=== PATIENT | female | born 1985 | race Caucasian/White ===

== ENCOUNTER 2017-06-23 08:37 | Outpatient (RCR) | payer BC, SELFPAY ==
--- NOTE | 2017-06-21 15:55 | BH.COMM ---
Communication Note - Communication with Client Communication Note: This therapist contacted client as she was scheduled for IOP program on this day however did not show. CLient reports struggling with negative thinking all day and woke up feeling depressed and exhausted which caused her to isolate and remain in been a majority of the day. Client disclosed increased thoughts of self harming; however denied any plan or intent to act on these thoughts. Client indicates she is able to maintain safety and is aware of the resources available should she no longer ffel able to do so. Future oriented as evidenced by plans to make dinner tonight and attend appointment tomorrow. Client expresses understanding that attendance is kelsey to making progress in better managing mental health symptoms. CLient receptive to having this therapist call her emergency contact should she no call/no show for next scheduled appointment, 06/23/17, in order increase motivation to attend and better hold her accountable. FOllow-up will be done in individual session on 06/23/17.
--- NOTE | 2017-06-23 13:51 | BH.SGPN ---
Service Group Progress Note - Session Psychotherapy Session #1 Date Open:: 06/23/17 Time Started:: 09:04 Time Stopped:: 09:54 Targeted Problem #:: 1 Type of Group:: Process - 6 Participants Goal of Group:: The goal of today's group was to check-in with client's mood, stressors, and positives, review homework, and to introduce the topic of the day. Client Response/Progress/Benefit:: Client entered session alert and attentive. Client shared, Tuesday was awful. I didnt get out of bed because I didnt want to see or talk to anyone and ruminated all day. Client went on to share that this was due to an argument with her the night before and felt bad about it. Client reported having decreased motivation and stated, I told myself I could have a [employer] coffee to get me here today. Therapist discussed ways at providing motivation for ourselves and client was receptive. Client benefitted from group by identifying her negative coping and ways she could have implemented positive coping skills. Progress noted in clients ability to make it to group today using a positive motivation and reward. Continued treatment necessary to increase implementation of coping skills. Eye Contact:: Good Motor Activity:: Appropriate Appearance:: Casual Speech:: Appropriate Mood:: Depressed Affect:: Full Thoughts:: Linear, Logical, No evidence of hallucinations/delusions noted Staff Interventions:: Therapist used open-ended questions to elicit information about client's current stressors and mood. Therapist was supportive by using active listening and reflection. Psychotherapy Session #2 Date Open:: 06/23/17 Time Started:: 10:09 Time Stopped:: 11:06 Targeted Problem #:: 1 Type of Group:: Illness Management - 5 Participants Goal of Group:: To increase understanding of fear and explore the negative impact fear of failure can have on mental health and decision making. Client Response/Progress/Benefit:: Client entered session alert and attentive. Client defined what failure means to her as, not getting out of bed and doing what Im supposed to do. Client collaborated with peers to complete a group activity designed to test how individuals manage failure in their own lives. Client was unsure if she would be able to complete activity due to memory issues, but client was able to successfully complete activity. Client benefitted from group by processing what failure means and how it can be reframed positively. Progress noted in clients ability to continue on with activity even through negative self-talk. Continued treatment necessary to increase functioning. Eye Contact:: Good Motor Activity:: Appropriate Appearance:: Casual Speech:: Appropriate Mood:: Euthymic Affect:: Full Thoughts:: Linear, Logical, No evidence of hallucinations/delusions noted Staff Interventions:: Therapist facilitated discussion about fear and impact fear of failure can have. Therapist led group in an experiential activity in which clients would fail numerous times throughout, but were given the opportunity to try again. Therapist led the processing of the activity and assisted clients with connecting how fear of failure impacted their decision making during the activity.
--- NOTE | 2017-06-23 14:18 | BH.SGPN ---
Service Group Progress Note - Session Psychotherapy Session #2 Date Open:: 06/23/17 Time Started:: 10:09 Time Stopped:: 11:06 Targeted Problem #:: 1 Type of Group:: Illness Management - 5 participants Psychotherapy Session #3 Date Open:: 06/23/17 Time Started:: 11:15 Time Stopped:: 12:10 Targeted Problem #:: 1 Type of Group:: Functional Skills Development - 6 participants
--- NOTE | 2017-06-23 14:47 | BH.MDN ---
Multi-Disciplinary Note - Note 45-min Individual Time Started:: 12:20 Date: 06/23/17 Purpose of session/treatment goals addressed:: The purpose of this session was to check-in with CLient current symptomatology, stressors, and current means of coping. Another purpose was to review with CLient the impact of self depricating talk on mental health as well as ways to begin challenging use of negative self talk. Aided Client in identifying strategies Client can utilize to best promote a healthy daily routine. Eye Contact:: Good Motor Activity:: Appropriate Appearance:: Casual Speech:: Appropriate Mood:: Euthymic Affect:: Congruent Thoughts:: Linear, Logical, No evidence of hallucinations/delusions noted Staff Interventions:: Therapist asked open ended questions to ellicit information regarding Client current symptoms, stressors, and implementation of treatment material and coping skills learned. Provided psychoeducation regarding relationship between self talk and mental health. Utilized Motivational Interviewing concepts of creating discrepency and processing ambivilance to promote change behaviors. Aided Client in setting small goal for this weekend. Client Response:: Client responded well to session and engaged throughout. She reports her overall mental health state has improved since this past Tuesday which Client described as being really bad. Client elaborated on symptoms experienced during that time indicating that she couldn't get out of bed, had no motivation, felt hopeless, and was experiencing increased negative thinking. Client had difficulties in pinpointing any triggers and was unable to identify what has changed to improve her mood since. Client not knowing what else to do as she expressed she is doing everything I can. Client responded well to being challenged as to what skills she has implemented or behaviors she has changed to best suppport her mental health since beginning the IOP program. Client identified attending the program as the only change she has made and indicated that on days she attends group or has something to do she feels better. Client denied taking any steps towards challenging her thoughts or use of self depricating talk and indicated having some ambivilance in doing so as she is skeptical of it's effectiveness. However, in discussing the relationship between self talk and mental health Client appeared more accepting of the idea of beginning to challenge her thinking. Client reports feeling uncomfortable or like a fraud when using these skills. She responded well to discussing how new things can be uncomfortable or feel wrong during the adjustment period. Client agreeable to slowly implementing thought challenging strategies into her routine so that she can more readily adapt to making minor adjustments in her thinking patterns. Client worked with this therapist to develop small goals for this weekend and created a get out of bed checklist as motivation. Client reports plans to begin taking time each morning to work on challenging self sabbotaging thoughts. Risks/Concerns:: No risks or concerns at this time. Client denies any active SI/HI, plan, or intent. She is future oriented and indicates plans to attend a [employer] night with her mother this evening. Client indicates an ability to maintain safety and is aware of and willing to utilize local crisis resources available if feeling unable to maintain safety at any time. Progress Toward Goals/Plan:: Some progress. Client reports improved levels of depression and anxiety on this date however continues to experience fluctuating moods. Since being prescribed [facility] last tuesday, 06/17, Client reports improved levels of sleep and in turn increased energy. Client appears more willing to begin implementing internal coping skills; however, continues to struggle with consistant implementation. Client appears to have fair levels of insight but often uses poor judgement which results in maladaptive coping such as isolating and self depricating talk. Current plan is to continue treatment in order to prevent decompensation and continue working with Client on challenging her unhealthy thinking patterns and increase consistant use of coping skills. Time Stopped:: 13:00
--- NOTE | 2017-06-23 14:58 | BH.SGPN ---
Service Group Progress Note - Session Psychotherapy Session #1 Date Open:: 06/23/17 Time Started:: 09:04 Time Stopped:: 09:54 Targeted Problem #:: 1 Type of Group:: Process Goal of Group:: The goal of today's group was to check-in with client's mood, stressors, and positives, review homework and introduce topic for the day. Staff Interventions:: Therapist used open-ended questions to elicit information about client's current stressors and mood state. Therapist was supportive by using active listening and reflection.
--- NOTE | 2017-06-24 15:00 | BH.COMM ---
Communication Note - Communication with Client Communication Note: Spoke with [facility] psychiatrist providing client's recent Tina level information. [facility] psychiatrist gave order for patient to increase from 300mg once a day at night to taking 300mg Tina in the morning and 300mg Tina at night. Requests a Tina level to be drawn the week of 07/04/17.
--- NOTE | 2017-06-24 15:02 | BH.COMM_ITS ---
Communication Note - Communication with Client Communication Note: Spoke with [facility] psychiatrist providing client's recent Manly level information. [facility] psychiatrist gave order for patient to increase from 300mg once a day at night to taking 300mg Manly in the morning and 300mg Manly at night. Requests a Manly level to be drawn the week of 07/04/17.
--- NOTE | 2017-06-28 15:12 | BH.SGPN ---
Service Group Progress Note - Session Psychotherapy Session #3 Date Open:: 06/28/17 - 5 group members Time Started:: 11:07 Time Stopped:: 12:01 Targeted Problem #:: 1 Type of Group:: Functional Skills Development Goal of Group:: To identify steps to solving a personal problem and increase awareness to those barriers that impedes the problem solving process. Client Response/Progress/Benefit:: Client responded well to session, passive participant at times. Client identified managing depression and anxiety as a personal problem she would like to solve. Client reported it was easy to come up with her barriers, but challenging to think of steps to solve the problem. Client identified her barriers to be: negative thinking, suicidal thoughts, flashbacks, and panic attacks. With therapist elicitation, client created small steps to solve this problem such as continue coming to IOP even when I don't feel like it, continue with medication and DBT, use positive self-talk and challenge negative thinking. Client stated using healthy coping skills such as art, music, and being with pets will keep client motivated throughout this process. Client appeared to benefit from gaining awareness of barriers and identifying strategies to overcome her problem. Client progressing with creating small steps to manage symptoms, but continues to struggle with consistency. Eye Contact:: Fair Motor Activity:: Appropriate Appearance:: Neat Speech:: Soft Mood:: Dysthymic Affect:: Constricted Thoughts:: Linear, No evidence of hallucinations/delusions noted Staff Interventions:: Therapist provided group members with a worksheet in which the group members were instructed to identify a problem and steps need to take to solve that problem. Then therapist instructed group members to identify those barriers that get in the way of solving the problem. Therapist led the processing of the activity. Therapist provided support by using active listening and providing feedback.
--- NOTE | 2017-06-30 15:20 | BH.SGPN ---
Service Group Progress Note - Session Psychotherapy Session #2 Date Open:: 06/30/17 - 3 group members Time Started:: 10:13 Time Stopped:: 11:06 Targeted Problem #:: 1 Type of Group:: Illness Management Goal of Group:: The goal of todays group is to identify how emotions can impact our communication skills, and why it is important to be able to communicate in stressful situations. Client Response/Progress/Benefit:: Client responded well to session, active participant. Client processed quote with group, nodding in agreement to peers response. Client reported when her emotions are not managed she tends to shut down, isolate, and withdraw from supports which can negatively impact communication. Client reported even though it is hard, it is important to communicate in stressful situations so that ones support system knows what client needs and how to effectively help her. Client appeared to benefit from identifying ways that emotions can impact communication. Client progressing with gaining awareness as shown by her report of high emotions leading client to withdraw from supports which can hinder communication and exacerbate mental health symptoms. Eye Contact:: Fair Motor Activity:: Appropriate Appearance:: Neat Speech:: Soft Mood:: Dysthymic Affect:: Flat Thoughts:: Linear, No evidence of hallucinations/delusions noted Staff Interventions:: Therapist led an experiential activity where group members worked together for a common goal, but with adaptations made on how members were able to communicate with one another. Therapist used open-ended questions to elicit group discussion about emotions which arose during activity, as well as identifying how emotions experienced impacted ability to communicate effectively with other group members. Psychotherapy Session #3 Date Open:: 06/30/17 - 3 group members Time Started:: 11:14 Time Stopped:: 12:05 Targeted Problem #:: 1 Type of Group:: Functional Skills Development Goal of Group:: The goal of todays group was to increase awareness of different states of alertness attached to emotions and identifying healthy coping strategies for each state of alertness. Client Response/Progress/Benefit:: Client responded well to session, participating when prompted by therapist. Client learned about the stages of emotional alertness and described what each stage looks like for her. Client shared when she feels low client feels empty, sad, meaningless, and lacks motivation. Client identified her survival alertness as extreme depression and anxiety, racing negative thoughts, and hopelessness. Client stated her baseline is when client is able to manage her symptoms and work. Client identified healthy coping skills that would return client to her baseline such as self-care, coming to group even when I dont want to, and using art. Client appeared to benefit from gaining awareness of what her emotional alertness stages look like as well as identifying healthy coping skills to utilize in each stage. Client progressing as evidenced by her attendance at group today despite reports of increased depressive symptoms. Eye Contact:: Fair Motor Activity:: Slowed Appearance:: Neat Speech:: Soft Mood:: Dysthymic Thoughts:: Linear, No evidence of hallucinations/delusions noted Staff Interventions:: Therapist facilitated group by teaching about the 4 zones of different states of alertness and helping clients connect emotions to each zone based on state of alertness. Therapist assisted clients with identifying healthy coping strategies that would be best utilized based on the state of alertness. Therapist provided support by using active listening and providing feedback.
--- NOTE | 2017-06-30 15:40 | BH.SGPN_ITS ---
Service Group Progress Note - Session Psychotherapy Session #2 Date Open:: 06/30/17 - 3 group members Time Started:: 10:13 Time Stopped:: 11:06 Targeted Problem #:: 1 Type of Group:: Illness Management Goal of Group:: The goal of today?s group is to identify how emotions can impact our communication skills, and why it is important to be able to communicate in stressful situations. Client Response/Progress/Benefit:: Client responded well to session, active participant. Client processed quote with group, nodding in agreement to peer?s response. Client reported when her emotions are not managed she tends to shut down, isolate, and withdraw from supports which can negatively impact communication. Client reported even though it is hard, it is important to communicate in stressful situations so that one?s support system knows what client needs and how to effectively help her. Client appeared to benefit from identifying ways that emotions can impact communication. Client progressing with gaining awareness as shown by her report of high emotions leading client to withdraw from supports which can hinder communication and exacerbate mental health symptoms. Eye Contact:: Fair Motor Activity:: Appropriate Appearance:: Neat Speech:: Soft Mood:: Dysthymic Affect:: Flat Thoughts:: Linear, No evidence of hallucinations/delusions noted Staff Interventions:: Therapist led an experiential activity where group members worked together for a common goal, but with adaptations made on how members were able to communicate with one another. Therapist used open-ended questions to elicit group discussion about emotions which arose during activity , as well as identifying how emotions experienced impacted ability to communicate effectively with other group members. Psychotherapy Session #3 Date Open:: 06/30/17 - 3 group members Time Started:: 11:14 Time Stopped:: 12:05 Targeted Problem #:: 1 Type of Group:: Functional Skills Development Goal of Group:: The goal of today group was to increase awareness of different states of alertness attached to emotions and identifying healthy coping strategies for each state of alertness. Client Response/Progress/Benefit:: Client responded well to session, participating when prompted by therapist. Client learned about the stages of emotional alertness and described what each stage looks like for her. Client shared when she feels low client feels empty, sad, ?meaningless,? and lacks motivation. Client identified her survival alertness as ?extreme depression and anxiety,? racing negative thoughts, and hopelessness. Client stated her baseline is when client is able to manage her symptoms and work. Client identified healthy coping skills that would return client to her baseline such as self-care, coming to group ?even when I don?t want to,? and using art. Client appeared to benefit from gaining awareness of what her emotional alertness stages look like as well as identifying healthy coping skills to utilize in each stage. Client progressing as evidenced by her attendance at group today despite reports of increased depressive symptoms. Eye Contact:: Fair Motor Activity:: Slowed Appearance:: Neat Speech:: Soft Mood:: Dysthymic Thoughts:: Linear, No evidence of hallucinations/delusions noted Staff Interventions:: Therapist facilitated group by teaching about the 4 zones of different states of alertness and helping clients connect emotions to each zone based on state of alertness. Therapist assisted clients with identifying healthy coping strategies that would be best utilized based on the state of alertness. Therapist provided support by using active listening and providing feedback.
--- NOTE | 2017-07-01 11:12 | BH.SGPN ---
Service Group Progress Note - Session Psychotherapy Session #1 Date Open:: 07/01/17 Time Started:: 09:00 Time Stopped:: 09:50 Targeted Problem #:: 1 Type of Group:: Process - 6 Participants Goal of Group:: The goal of today's group was to check-in with client's mood, stressors, and positives, review homework, and to introduce the topic of the day. Client Response/Progress/Benefit:: Client entered session attentive but was quiet the majority of group AEB staring at the floor and bouncing her legs. Client refused to share with group. Client appeared to benefit from being in a social environment with others but no progress was noted due to clients refusal to share. Continued treatment necessary to increase communication and reduce depressive symptoms. Eye Contact:: Fair Motor Activity:: Restless - bouncing legs and moving around in chair Appearance:: Casual Speech:: Appropriate Mood:: Anxious, Depressed Affect:: Constricted, Congruent Thoughts:: Linear, Logical, No evidence of hallucinations/delusions noted Staff Interventions:: Therapist used open-ended questions to elicit information about client's current stressors and mood. Therapist was supportive by using active listening and reflection.
--- NOTE | 2017-07-01 15:00 | BH.SGPN ---
Service Group Progress Note - Session Psychotherapy Session #3 Date Open:: 07/01/17 Time Started:: 11:10 Time Stopped:: 12:00 Targeted Problem #:: 1 Type of Group:: Functional Skills Development Goal of Group:: To increase awareness of warning signs before a crisis and identify interventions/coping strategies that would help clients proactively manage potential crises. Eye Contact:: Fair Motor Activity:: Appropriate Appearance:: Casual Speech:: Appropriate Mood:: Depressed Affect:: Constricted Thoughts:: Linear, Logical, No evidence of hallucinations/delusions noted Staff Interventions:: Therapist led the group in discussion about identifying personal warning signs before a crisis and importance of being aware of those signs.Therapist provided the group with various types of items and asked each group member to select five items that represent something that would be helpful in managing their warning signs of a crisis. Therapist facilitated group processing of the crisis emergency kits each group member created. Therapist used open-ended questions to encourage elaboration of each item chosen for their kit. Therapist helped clients connect how the crisis emergency kit could help be a crisis prevention tool.
--- NOTE | 2017-07-05 13:54 | BH.SGPN_ITS ---
Service Group Progress Note - Session Psychotherapy Session #1 Date Open:: 06/23/17 Time Started:: 09:04 Time Stopped:: 09:54 Targeted Problem #:: 1 Type of Group:: Process - 6 Participants Goal of Group:: The goal of today's group was to check-in with client's mood, stressors, and positives, review homework, and to introduce the topic of the day. Client Response/Progress/Benefit:: Client entered session alert and attentive. Client shared, ?Tuesday was awful. I didn?t get out of bed because I didn?t want to see or talk to anyone and ruminated all day.? Client went on to share that this was due to an argument with her the night before and felt bad about it. Client reported having decreased motivation and stated, ?I told myself I could have a [employer] coffee to get me here today.? Therapist discussed ways at providing motivation for ourselves and client was receptive. Client benefitted from group by identifying her negative coping and ways she could have implemented positive coping skills. Progress noted in client?s ability to make it to group today using a positive motivation and reward. Continued treatment necessary to increase implementation of coping skills. Eye Contact:: Good Motor Activity:: Appropriate Appearance:: Casual Speech:: Appropriate Mood:: Depressed Affect:: Full Thoughts:: Linear, Logical, No evidence of hallucinations/delusions noted Staff Interventions:: Therapist used open-ended questions to elicit information about client's current stressors and mood. Therapist was supportive by using active listening and reflection. Psychotherapy Session #2 Date Open:: 06/23/17 Time Started:: 10:09 Time Stopped:: 11:06 Targeted Problem #:: 1 Type of Group:: Illness Management - 5 Participants Goal of Group:: To increase understanding of fear and explore the negative impact fear of failure can have on mental health and decision making. Client Response/Progress/Benefit:: Client entered session alert and attentive. Client defined what failure means to her as, ?not getting out of bed and doing what I?m supposed to do.? Client collaborated with peers to complete a group activity designed to test how individuals manage failure in their own lives. Client was unsure if she would be able to complete activity due to memory issues , but client was able to successfully complete activity. Client benefitted from group by processing what failure means and how it can be reframed positively. Progress noted in client?s ability to continue on with activity even through negative self-talk. Continued treatment necessary to increase functioning. Eye Contact:: Good Motor Activity:: Appropriate Appearance:: Casual Speech:: Appropriate Mood:: Euthymic Affect:: Full Thoughts:: Linear, Logical, No evidence of hallucinations/delusions noted Staff Interventions:: Therapist facilitated discussion about fear and impact fear of failure can have. Therapist led group in an experiential activity in which client?s would fail numerous times throughout, but were given the opportunity to try again. Therapist led the processing of the activity and assisted clients with connecting how fear of failure impacted their decision making during the activity.
--- NOTE | 2017-07-06 14:23 | BH.SGPN_ITS ---
Service Group Progress Note - Session Psychotherapy Session #2 Date Open:: 07/06/17 group members Time Started:: 10:20 Time Stopped:: 11:15 Targeted Problem #:: 1 Type of Group:: Illness Management Goal of Group:: To increase understanding of resilience and identify the factors that contribute to building resilience. Client Response/Progress/Benefit:: Client responded well to session, active participant. Client processed the quote nodding in agreement to peers? comments. Client helped the group identify factors of resiliency such as supportive connections and moving towards goals. Client shared goals give one a reason to move forward and builds confidence. Client stated it is also important to ask for and accept help from personal and professional supports. Client reported belief she is resilient and appeared to agree with peers that resiliency is something that is learned and developed over time as one overcomes hardships. Client appeared to benefit from increasing her awareness of the resiliency factors. Client progressing as shown by her report of increased goal setting and use of supports, but can continue to benefit from challenging negative thoughts. Eye Contact:: Fair Motor Activity:: Appropriate Appearance:: Neat Speech:: Appropriate Mood:: Euthymic Affect:: Constricted Thoughts:: Linear, No evidence of hallucinations/delusions noted Staff Interventions:: Therapist led group in an activity that would induce a chaotic environment and used the activity as a tool in discussing the various stressors people are faced with each day. Therapist facilitated group discussion about resilience and explained the factors of building resilience. Therapist led discussion about factors that contribute to resilience. Therapist provided support by using active listening and providing feedback. Psychotherapy Session #3 Date Open:: 07/06/17 group members Time Started:: 11:21 Time Stopped:: 12:11 Targeted Problem #:: 1 Type of Group:: Functional Skills Development Goal of Group:: To rehearse resilient factors and identify ways to maintain resilience despite hardships and stressors. Client Response/Progress/Benefit:: Client responded well to session, active participant. Client reported being flexible and trying new strategies increases resiliency. Client identified her personal resiliency factors as ?I?m still here ? despite all the hardships client has been through. Client was receptive to supportive statements given by therapist and peers on additional resiliency traits client possesses. Client acknowledged that she has been utilizing opposite action as a strategy to combat depression which demonstrates progress and resiliency. Client wrote her personal resiliency traits on her stress ball to remind client of how she can remain resilient despite hardships. Client appeared to benefit from identifying ways in which client has demonstrated resiliency as well as gaining emotional support from peers. Client progressing as evidenced by her report of more consistent behavioral changes such as coming to group when client feels depressed. Eye Contact:: Good Motor Activity:: Appropriate Appearance:: Neat Speech:: Appropriate Mood:: Euthymic Affect:: Congruent Thoughts:: Linear, No evidence of hallucinations/delusions noted Staff Interventions:: Therapist led group in an activity in which group members were challenged to stay resilient despite various stressors and hardships added to activity. Therapist provided each group member with a stress ball and used stress ball as a tool to discuss factors of resilient personality. Therapist provided group members with a handout about the building blocks of resilience. Therapist provided support by using reflective listening.
--- NOTE | 2017-07-06 16:23 | BH.SGPN ---
Service Group Progress Note - Session Psychotherapy Session #1 Date Open:: 07/06/17 Time Started:: 09:09 Time Stopped:: 10:15 Targeted Problem #:: 1 Type of Group:: Process - 10 participants
--- NOTE | 2017-07-07 11:48 | BH.MDN ---
Multi-Disciplinary Note - Note 45-min Individual Time Started:: 09:10 Date: 07/07/17 Purpose of session/treatment goals addressed:: Purpose of the session was to check in with client current symptoms, stressors, supports. Another purpose was to discuss with client recent self sabotaging behavior and challenge negative thoughts associated with such, as well as identify steps to increase supports and encourage healthy behaviors. Eye Contact:: Good Motor Activity:: Appropriate Appearance:: Casual Speech:: Appropriate Mood:: Dysthymic Affect:: Congruent Thoughts:: Linear, Logical, No evidence of hallucinations/delusions noted Staff Interventions:: Therapist used open-ended questions to gather information on client's current symptoms, stressors, and supports. Therapist provided emotional support and active listening as client discussed guilt and frustration related to recent self-sabotaging behaviors as well as worked with Client to process impact this had on her mental health. Used Strengths based approach as well as ID techniques to encourage Client, identify progress made, and elicit change behaviors. Client Response:: Client open to meeting with this therapist for individual session and did well to remain engaged throughout. Client expressed minor improvement in overall levels of depression and described an increased ability to get out of bed on a consistent basis and complete ADLs. Client attributed this to making a conscious effort not to allow herself to isolate in her bedroom and actively completing the morning routine she created in a previous session. Client went on to discuss increased tension within her home life, specifically between Client's fiance and stepson, as client's mikhailon has been engaging in disruptive and defiant behavior. Client indicated that she had felt proud of herself for setting aside time to have a [id number] discussion with her stepson reviewing the progress he has made in the past 6 months, discussing strategies to best support and encourage positive behaviors, as well as identifying warning signs for when he feels like exploding. She responded well to therapist challenge that client apply the same technique she gave her stepson to her own life and journey in navigating mental health symptoms. Client indicated feeling it is easier to find progress when looking at someone else other than herself. She benefited from working with therapist to identify progress she has made since her initial admission occurring this past September compared to where she is now. Client able to identify increased ability to recognize warning signs and triggers, willingness to communicate with supports, and decreased isolation. Following review of progress made client guiltfully disclosed I kind of did something yesterday that was self sabotaging and went on to describe checking her ex-'s Facebook page only to discover that he is now engaged. Client indicated I don't know why did it and was able to identify negative effects as had on her mental health and self-esteem as a result. Client explained thinking why was I not good enough for him and if he left then Sandip will probably leave me too. She did well to work with this therapist on challenging these thoughts by reviewing evidence against these thoughts. Client responded well to suggestion of having accountability person to report self sabotaging behavior to as this may aid in deterring client from engaging in such. Client noted she would be less likely to engage in similar behaviors if she knew she had to report back to her mother every time she did so. Client expressed willingness to share this plan with her mother in order to ensure she will be held accountable as well as continue to complete daily routine in order to promote ongoing positive progress. Risks/Concerns:: No risks or concerns at this time. Client indicates passive thoughts of I wish I did not wake up this morning though denies any active suicidal or self harming ideation, plan, or intent as of 07/07/2017. Client indicates an ability to maintain safety and is future oriented as evidenced by expressed plans to go to her mother's house. Client reports her family as being her motivations to live. She is aware of and willing to use crisis resources available should she no longer feel able to maintain safety of herself or others. Progress Toward Goals/Plan:: Client is making progress in overall treatment goals. She has shown improvement in levels of insight insight into how current thoughts and behaviors impact overall mental health. Client discussed case motivation to apply skills learned in the IOP program to her daily life and has shown progress in her ability to prevent from isolating as well as challenge negative thoughts. Client continues to report ongoing anxiety and depressive symptoms. She often falls into [id number] thinking or self sabotaging behaviors. Client would benefit from continuing in IOP in order to maintain stability, further improve consistent use of healthy coping mechanisms, as well as increased overall understanding and management of of mental health symptoms. Time Stopped:: 10:58
--- NOTE | 2017-07-07 15:00 | BH.SGPN ---
Service Group Progress Note - Session Psychotherapy Session #2 Date Open:: 07/07/17 Time Started:: 10:15 Time Stopped:: 11:10 Targeted Problem #:: 1 Type of Group:: Illness Management Goal of Group:: The goal of group was to increase understanding of goals and goal setting and practice a method of goal setting. Eye Contact:: Good Motor Activity:: Appropriate Appearance:: Casual Speech:: Appropriate Mood:: Dysthymic Affect:: Congruent Thoughts:: Linear, Logical, No evidence of hallucinations/delusions noted Staff Interventions:: Therapist led group in an activity that would induce a chaotic environment and used the activity as a tool in discussing the various stressors people are faced with each day. Therapist facilitated group discussion about resilience and explained the factors of building resilience. Therapist led discussion about factors that contribute to resilience. Therapist provided support by using active listening and providing feedback. Psychotherapy Session #3 Date Open:: 07/07/17 Time Started:: 11:20 Time Stopped:: 12:15 Targeted Problem #:: 1 Type of Group:: Functional Skills Development Goal of Group:: The goal of group was to identify a goal for the weekend, explore the potential barriers to achieving that set goal, and identify strategies to overcome barriers. Eye Contact:: Good Motor Activity:: Appropriate Appearance:: Casual Speech:: Appropriate Mood:: Dysthymic Affect:: Congruent Thoughts:: Linear, Logical, No evidence of hallucinations/delusions noted Staff Interventions:: Therapist facilitated group activity in which group members identified a goal to work on over the next week. Therapist asked group members to identify barriers to achieving identified goal and strategies to help them achieve their goal. Therapist led group in processing their goal maps, assisting clients with establishing SMART goals. Therapist provided support by using reflective listening.
--- NOTE | 2017-07-08 11:12 | BH.SGPN_ITS ---
Service Group Progress Note - Session Psychotherapy Session #2 Date Open:: 06/28/17 Time Started:: 10:08 Time Stopped:: 11:00 Targeted Problem #:: 1 Type of Group:: Illness Management - 5 Participants Goal of Group:: To increase understanding of components of a problem, learn strategies to solve a problem and rehearse problem solving skills. Client Response/Progress/Benefit:: Client entered session alert and attentive. Client was quiet the majority of group, however she did participate in group activity designed to have group members use problem solving skills when faced with stressors. Client worked well with peers to create alternate ways to complete activity. Client benefitted from group by identifying various problem solving strategies and implementing them in group practice. Progress noted in client?s ability to work with peers and complete activity. Continued treatment necessary to decrease depressive symptoms. Eye Contact:: Good Motor Activity:: Appropriate Appearance:: Casual Speech:: Appropriate Mood:: Euthymic Affect:: Full Thoughts:: Linear, Logical, No evidence of hallucinations/delusions noted Staff Interventions:: Therapist facilitated group discussion about problems and the underlying components of problems. Therapist educated group about various strategies to solving a problem and provided an example of each. Therapist led group in an experiential activity that required group members to use problem solving skills to work together, rehearsing problem solving skills.
--- NOTE | 2017-07-08 11:13 | BH.SGPN_ITS ---
Service Group Progress Note - Session Psychotherapy Session #1 Date Open:: 07/01/17 Time Started:: 09:00 Time Stopped:: 09:50 Targeted Problem #:: 1 Type of Group:: Process - 6 Participants Goal of Group:: The goal of today's group was to check-in with client's mood, stressors, and positives, review homework, and to introduce the topic of the day. Client Response/Progress/Benefit:: Client entered session attentive but was quiet the majority of group AEB staring at the floor and bouncing her legs. Client refused to share with group. Client appeared to benefit from being in a social environment with others but no progress was noted due to client?s refusal to share. Continued treatment necessary to increase communication and reduce depressive symptoms. Eye Contact:: Fair Motor Activity:: Restless - bouncing legs and moving around in chair Appearance:: Casual Speech:: Appropriate Mood:: Anxious, Depressed Affect:: Constricted, Congruent Thoughts:: Linear, Logical, No evidence of hallucinations/delusions noted Staff Interventions:: Therapist used open-ended questions to elicit information about client's current stressors and mood. Therapist was supportive by using active listening and reflection.
--- NOTE | 2017-07-08 11:19 | BH.SGPN ---
Service Group Progress Note - Session Psychotherapy Session #1 Date Open:: 07/08/17 Time Started:: 09:02 Time Stopped:: 10:05 Targeted Problem #:: 1 Type of Group:: Process - 6 Participants Goal of Group:: The goal of today's group was to check-in with client's mood, stressors, and positives, review homework, and to introduce the topic of the day. Client Response/Progress/Benefit:: Client entered group alert, attentive, and willing to engage. Client cites having an okay day yesterday sharing that she was able to have a heart to heart with my mom and I had a little meltdown but Im okay. Client went on to share, I know he loves me but he doesnt understand sometimes so its nice that my mom is there. Client indicated her emotion as tired stating, I slept well but it was just really hard to get out of bed. Client benefitted from group by identifying her support systems in her life and receiving support from peers. Progress noted in clients ability to reach out to supports during a stressful situation. Continued treatment necessary to maintain use of supports and coping skills. Eye Contact:: Good Motor Activity:: Appropriate Appearance:: Casual Speech:: Appropriate Mood:: Anxious, Depressed Affect:: Full Thoughts:: Linear, Logical, No evidence of hallucinations/delusions noted Staff Interventions:: Therapist used open-ended questions to elicit information about client's current stressors and mood. Therapist was supportive by using active listening and reflection.
--- NOTE | 2017-07-08 11:24 | BH.SGPN_ITS ---
Service Group Progress Note - Session Psychotherapy Session #1 Date Open:: 07/08/17 Time Started:: 09:02 Time Stopped:: 10:05 Targeted Problem #:: 1 Type of Group:: Process - 6 Participants Goal of Group:: The goal of today's group was to check-in with client's mood, stressors, and positives, review homework, and to introduce the topic of the day. Client Response/Progress/Benefit:: Client entered group alert, attentive, and willing to engage. Client cites having an ?okay day yesterday? sharing that she was able to have a ?heart to heart with my mom and I had a little meltdown but I ?m okay.? Client went on to share, ?I know he loves me but he doesn?t understand sometimes so it?s nice that my mom is there.? Client indicated her emotion as tired stating, ?I slept well but it was just really hard to get out of bed.? Client benefitted from group by identifying her support systems in her life and receiving support from peers. Progress noted in client?s ability to reach out to supports during a stressful situation. Continued treatment necessary to maintain use of supports and coping skills. Eye Contact:: Good Motor Activity:: Appropriate Appearance:: Casual Speech:: Appropriate Mood:: Anxious, Depressed Affect:: Full Thoughts:: Linear, Logical, No evidence of hallucinations/delusions noted Staff Interventions:: Therapist used open-ended questions to elicit information about client's current stressors and mood. Therapist was supportive by using active listening and reflection.
--- NOTE | 2017-07-08 14:39 | BH.SGPN ---
Service Group Progress Note - Session Psychotherapy Session #2 Date Open:: 07/08/17 Time Started:: 10:17 Time Stopped:: 11:14 Targeted Problem #:: 1 Type of Group:: Illness Management - 7 participants Goal of Group:: To increase understanding of cognitive distortions, identify examples of when have had unhelpful thinking, and increase awareness of the impact cognitive distortions have on mental health. Staff Interventions:: Therapist utilized a quote as a tool to introduce topic of the day. Therapist provided group members with a handout that listed ten cognitive distortions with examples. Therapist facilitated group discussion about cognitive distortions. Therapist led group members in an activity to help them understand the impact cognitive distortions can have on emotions and behavior. Therapist provided support by using active listening and providing feedback. Psychotherapy Session #3 Date Open:: 07/08/17 Time Started:: 11:20 Time Stopped:: 12:16 Targeted Problem #:: 1 Type of Group:: Functional Skills Development - 7 participants Goal of Group:: To identify ways of defeating cognitive distortions and rehearse defeating the identified cognitive distortion. Staff Interventions:: Therapist utilized an activity as a tool in helping clients connect the amount of effort one will need to put forth to defeat cognitive distortions. Therapist provided group members with a handout to use as an aid when trying to defeat their unhelpful thinking. Therapist processed the worksheet with group members, helping them reframe the cognitive distortions.
--- NOTE | 2017-07-08 15:21 | BH.NOTE ---
BH: Inpatient Note - Notes Behavioral Health Inpatient Note: Per V.O. from Dr. Priest, this RN called the following Rx into [facility] on [address] in [place]: [place] ER 300mg PO BID #60 NO refills Prozac 60mg PO daily #30 NO refills VAZQUEZ GoN, RN
--- NOTE | 2017-07-11 10:37 | BH.SGPN ---
Service Group Progress Note - Session Psychotherapy Session #2 Date Open:: 07/11/17 Time Started:: 10:12 Time Stopped:: 11:12 Targeted Problem #:: 1 Type of Group:: Illness Management - 10 participants Psychotherapy Session #3 Date Open:: 07/11/17 Time Started:: 11:19 Time Stopped:: 12:20 Targeted Problem #:: 1 Type of Group:: Functional Skills Development - 8 participants
--- NOTE | 2017-07-11 10:38 | BH.SGPN_ITS ---
Service Group Progress Note - Session Psychotherapy Session #1 Date Open:: 18 - 9 group members Time Started:: 09:00 Time Stopped:: 10:02 Targeted Problem #:: 1 Type of Group:: Process Goal of Group:: The goal of today's group was to check-in with client's mood, stressors, and positives, and introduce topic for the day. Client Response/Progress/Benefit:: Client responded well to session, providing supportive statements to peers. Client stated she had a good weekend with her boys as client spent time playing games and watching movies with them. Client reports feeling pissed off today, but client unable to identify a trigger. With therapist elicitation client recognizes her recent conversation with her fianc?e may be contributing to client's frustration. Client shared she asked her fianc?e to attend a couples? session and did not receive the response she wanted. Client was receptive to group feedback on how to manage and cope with disappointment. Client shared today she plans to color and do activities to get the energy out in a healthy way. Client appeared to benefit from processing her emotions with the group and identifying healthy strategies to manage emotions today. Client progressing with utilizing opposite action rather than continue unhelpful maintenance cycles, but can continue to benefit from challenging negative thoughts. Eye Contact:: Good Motor Activity:: Restless Appearance:: Neat Speech:: Appropriate Mood:: Irritable Affect:: Constricted Thoughts:: Linear, No evidence of hallucinations/delusions noted Staff Interventions:: Therapist used open-ended questions to elicit information about client's current stressors and mood state. Therapist was supportive by using active listening and reflection.
--- NOTE | 2017-07-11 14:36 | BH.MDN ---
Multi-Disciplinary Note - Note 45-min Individual Time Started:: 12:23 Date: 07/11/17 Purpose of session/treatment goals addressed:: The purpose of the session was to review client overall treatment progress as well as current symptoms, stressors, and use of healthy supports. Another purpose was to address client's upcoming return to work date and anxieties related to this, as well as worked with Client to complete a cost/benefit analysis related to returning to work. Eye Contact:: Good Motor Activity:: Appropriate Appearance:: Casual Speech:: Appropriate Mood:: Anxious, Dysthymic Affect:: Congruent Thoughts:: Linear, Logical, No evidence of hallucinations/delusions noted Time Stopped:: 13:08
--- NOTE | 2017-07-14 13:36 | BH.SGPN ---
Service Group Progress Note - Session Psychotherapy Session #1 Date Open:: 07/14/17 Time Started:: 09:05 Time Stopped:: 10:00 Targeted Problem #:: 1 Type of Group:: Process Goal of Group:: The goal of today's group was to check-in with client's mood, stressors, and positives, review homework and introduce topic for the day. Client Response/Progress/Benefit:: Client reported she is feeling anxious to start back to work in a week. She will she is most anxious that she is going to have a panic attack when she returns to work. Reported she tends to have the expectation that she needs to be 100% every day and when she is not able to be 100% she does not want to go back to work. With assistance client able to recognize that her expectations tend to be too high which is all in client setting himself up for failure. Client making progress with consistent IOP attendance, self-awareness, and decreased depressive symptoms. Client progress may be hindered by client having good self-awareness of what is keeping her from making progress but not putting much into action to make positive changes. Eye Contact:: Fair Motor Activity:: Appropriate Appearance:: Casual Speech:: Appropriate Mood:: Dysthymic Affect:: Constricted Thoughts:: Linear, Logical, No evidence of hallucinations/delusions noted Staff Interventions:: Therapist used open-ended questions to elicit information about client's current stressors and mood state. Therapist was supportive by using active listening and reflection.
--- NOTE | 2017-07-15 13:05 | PCM.PN.BLA ---
Progress Note Patient is seen in follow-up for major depressive disorder recurrent severe F 33.2, anxiety unspecified, PTSD, borderline traits. History has been obtained per review with patient, discussion with staff, review of chart. Case discussed with treatment team. Chief complaint -depression and anxiety-hanging in there Interim history Moderate depressive symptoms persist but of decreased intensity. Reports some good days and some bad days. Attributes improvement to coping skills gained through IOP, routine, increased family and social activities, and addition of lithium. Feels lithium has been effective. 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 Chronic passive thoughts of . No suicide plan or intent. Feels able to maintain safety. No homicidal ideation. No symptoms consistent with psychosis. Sleeping from 9 PM to 5 AM. Appetite normal. Complained of nausea vomiting and diarrhea since the fall 2016. GI workup in progress. Status post colonoscopy on Tuesday. Results pending. Denies ingestion of alcohol. Compliant with medications including Prozac 60 mg daily, prazosin 2 mg nightly, gabapentin 800 mg nightly Topamax 50 mg nightly and lithium ER 300 mg every morning and nightly. 07/11/2017 lithium level 0.4. Patient denies adverse effects to medications. Mental status exam Patient is a 32-year-old male who appears her stated age. She is alert and oriented in no acute distress. She is ambulatory with normal gait and station. She has appropriate grooming and hygiene. She is casually dressed. She is cooperative with the interview. She has good eye contact. There is no psychomotor agitation or retardation. Mood is proved. Affect congruent. Speech is clear and of regular rate and volume. Language fluent. Thought process organized. Associations logical. Thought content significant for passive thoughts of . No suicide plan or intent. Feels able to maintain safety. No homicidal ideation related to detected. No evidence of psychosis related to detected. Immediate recent and remote memory grossly intact. Attention and concentration are good. Estimated intelligence fund of knowledge average. Judgment and insight are improving. Diagnosis Major depressive disorder recurrent severe of 33.2 Anxiety unspecified PTSD Borderline traits Obstructive sleep apnea-CPAP compliant Plan Continue IOP as the structured setting is necessary to maintain gains and prevent decompensation. Risks benefits alternatives of medications discussed with patient. Patient acknowledges understanding. Continue Prozac 60 mg daily. Prazosin 2 mg nightly. Gabapentin 800 mg nightly. Topamax 50 mg at bedtime. [place] 300 mg p.o. twice daily for augmentation of Prozac and suicidal thinking. Recent lithium level obtained. Further lab work will be obtained as needed. Continue follow-up with Dr. Priya Mckee. Continue follow-up with counselor Farida Yan. Ongoing CPAP compliance. 16 minutes of supportive psychotherapy provided. Patient acknowledges understanding and is in agreement with plan. Patient feels able to maintain safety. She agrees to seek help or emergency care feeling unsafe to self or others.
--- NOTE | 2017-07-15 14:02 | BH.SGPN ---
Service Group Progress Note - Session Psychotherapy Session #1 Date Open:: 07/15/17 Time Started:: 09:00 Time Stopped:: 09:51 Targeted Problem #:: 1 Type of Group:: Process - 7 Participants Goal of Group:: The goal of today's group was to check-in with client's mood, stressors, and positives, review homework, and to introduce the topic of the day. Client Response/Progress/Benefit:: Client entered session alert and attentive. Client reporting have a rough night and spoke about experiencing fainting spells, blacked out vision and chest pain and was taken to the ER. Client is still unsure as to what is going on with her health and reported feeling stressed out about it. Client indicated her emotion as tired and benefitted from group by venting concerns with peers. Progress noted in clients ability to manage stressors. Continued treatment necessary to reduce depressive symptoms. Eye Contact:: Good Motor Activity:: Appropriate Appearance:: Casual Speech:: Appropriate Mood:: Euthymic, Anxious Affect:: Full Thoughts:: Linear, Logical, No evidence of hallucinations/delusions noted Staff Interventions:: Therapist used open-ended questions to elicit information about client's current stressors and mood. Therapist was supportive by using active listening and reflection. Psychotherapy Session #2 Date Open:: 07/15/17 Time Started:: 10:05 Time Stopped:: 10:55 Targeted Problem #:: 1 Type of Group:: Illness Management - 8 Participants Goal of Group:: To increase understanding of pitfalls and impact can have on mental health. Client Response/Progress/Benefit:: Client entered session alert, attentive, and willing to engage. Client connected with the days quote stating, I know the right coping skills, but its hard to go down the right path but the path I know I dont have to open up, and I wont get hurt because I dont have to let people in. Client participated in group discussion on pitfalls and participated in group activity designed to help understand the impact pitfalls can have on the self. Client successfully collaborated with peers to complete activity. Client benefitted from group by identifying strategies and understanding and reducing pitfalls. Progress noted in clients ability to gain awareness of pitfalls. Continued treatment necessary to increase daily functioning. Eye Contact:: Good Motor Activity:: Appropriate Appearance:: Casual Speech:: Appropriate Mood:: Euthymic Affect:: Full Thoughts:: Linear, Logical, No evidence of hallucinations/delusions noted Staff Interventions:: Therapist facilitated discussion about pitfalls and assisted group in identifying common pitfalls that can set you back. Therapist led group in an activity to help group understand impact pitfalls can have on oneself and identify strategies that could help you get back on the right path. Therapist provided support by using active listening and providing feedback.
--- NOTE | 2017-07-18 14:05 | BH.SGPN ---
Service Group Progress Note - Session Psychotherapy Session #2 Date Open:: 07/18/17 - 7 group members Time Started:: 10:23 Time Stopped:: 11:20 Type of Group:: Illness Management Goal of Group:: To identify the importance of change, increase understanding of difficulty of making change, identify what clients would like to make changes in and identify the barriers or obstacles that get in the way of change. Client Response/Progress/Benefit:: Client responded well to session, quiet, but participating when prompted. Client processed the quote, stating, mental health impacts one?s ability to make changes and ?stop rereading? the past. Client helped group identify difficulties associated with making change such as trauma, anxiety, fear of unknown, and avoidance. Client identified changes she would like to make this week such as talking to her doctor, playing music two hours a day, and grooming her dog. Client reported these changes would reduce anxiety and improve self-care. Client identified her barriers to be ?not wanting to get out of bed,? ?no point? attitude, and feeling like she does not deserve to change. Client appeared to benefit from gaining awareness of her barriers that prevent client from making changes as well as identifying changes that would positively impact her mental health and functioning. Client progressing with identifying small goals to improve mental health, but continues to report low motivation to change which can hinder her progress. Eye Contact:: Fair Motor Activity:: Appropriate Appearance:: Neat Speech:: Appropriate Mood:: Dysthymic Affect:: Constricted Thoughts:: Linear, No evidence of hallucinations/delusions noted Staff Interventions:: Therapist facilitated discussion about change and helped client?s make connections of why change is important. Therapist led group in an experiential activity which involved client?s identifying changes want to make and barriers that get in the way of making those changes. Therapist utilized activity as a tool to help client?s make connections of difficulties in making changes and identify what helps overcome barriers to change. Psychotherapy Session #3 Date Open:: 07/18/17 - 6 group members Time Started:: 11:28 Time Stopped:: 12:20 Type of Group:: Functional Skills Development Goal of Group:: To identify specific barriers to an identified change want to make and identify ways to overcome those barriers. Client Response/Progress/Benefit:: Client responded well to session, off topic at times, but able to be redirected. Client identified her goal this week as ?get my dog groomed.? Client stated this would improve her mood because it would make her dog happy. Client shared her barriers are negative thinking, avoidance, and low motivation. Client created strategies to accomplish this change such as reminding herself of the benefits and setting a time frame for accomplishing the goal. Client seemed to benefit from developing strategies to overcome barriers so client can reach her goals. Client continues to report high insight to barriers, but shares even with the strategies she ?doesn?t know? how to overcome them. Eye Contact:: Fair Motor Activity:: Appropriate Appearance:: Neat Speech:: Appropriate Mood:: Dysthymic Affect:: Constricted Thoughts:: Linear, No evidence of hallucinations/delusions noted Staff Interventions:: Therapist facilitated discussion about what helped the group overcome challenges that came about during the experiential activity. Therapist utilized the activity as a tool in relating those experiences to ways to overcome barriers with challenges in their life when trying to make change. Therapist group into smaller groups and had them brainstorm ways to overcome certain barriers to their identified change. Therapist provided support by using reflective listening and providing feedback.
--- NOTE | 2017-07-19 11:58 | BH.COMM ---
Communication Note - Communication with Client Communication Note: Therapist attempted to contact client outpatient providers for coordination of care purposes. Individual outpatient therapists were unavailable at this time and therapist left messages with both requesting a return phone call. Additional follow-up will be done.
--- NOTE | 2017-07-25 14:03 | BH.SGPN_ITS ---
Service Group Progress Note - Session Psychotherapy Session #1 Date Open:: 07/15/17 Time Started:: 09:00 Time Stopped:: 09:51 Targeted Problem #:: 1 Type of Group:: Process - 7 Participants Goal of Group:: The goal of today's group was to check-in with client's mood, stressors, and positives, review homework, and to introduce the topic of the day. Client Response/Progress/Benefit:: Client entered session alert and attentive. Client reporting have a ?rough night? and spoke about experiencing fainting spells, blacked out vision and chest pain and was taken to the ER. Client is still unsure as to what is going on with her health and reported feeling stressed out about it. Client indicated her emotion as tired and benefitted from group by venting concerns with peers. Progress noted in client?s ability to manage stressors. Continued treatment necessary to reduce depressive symptoms. Eye Contact:: Good Motor Activity:: Appropriate Appearance:: Casual Speech:: Appropriate Mood:: Euthymic, Anxious Affect:: Full Thoughts:: Linear, Logical, No evidence of hallucinations/delusions noted Staff Interventions:: Therapist used open-ended questions to elicit information about client's current stressors and mood. Therapist was supportive by using active listening and reflection. Psychotherapy Session #2 Date Open:: 07/15/17 Time Started:: 10:05 Time Stopped:: 10:55 Targeted Problem #:: 1 Type of Group:: Illness Management - 8 Participants Goal of Group:: To increase understanding of pitfalls and impact can have on mental health. Client Response/Progress/Benefit:: Client entered session alert, attentive, and willing to engage. Client connected with the day?s quote stating, ?I know the right coping skills, but it?s hard to go down the right path but the path I know I don?t have to open up, and I won?t get hurt because I don?t have to let people in.? Client participated in group discussion on pitfalls and participated in group activity designed to help understand the impact pitfalls can have on the self. Client successfully collaborated with peers to complete activity. Client benefitted from group by identifying strategies and understanding and reducing pitfalls. Progress noted in client?s ability to gain awareness of pitfalls. Continued treatment necessary to increase daily functioning. Eye Contact:: Good Motor Activity:: Appropriate Appearance:: Casual Speech:: Appropriate Mood:: Euthymic Affect:: Full Thoughts:: Linear, Logical, No evidence of hallucinations/delusions noted Staff Interventions:: Therapist facilitated discussion about pitfalls and assisted group in identifying common pitfalls that can set you back. Therapist led group in an activity to help group understand impact pitfalls can have on oneself and identify strategies that could help you get back on the right path. Therapist provided support by using active listening and providing feedback.
== END 2017-07-20 23:59 ==
LOC: BHIOP 08:37
PROVIDERS: Family Provider Nurse Practitioner Family; PCP Nurse Practitioner Family; Visit Provider Psychiatry & Neurology Psychiatry
DX: F33.2 Major depressive disorder, recurrent severe without psychotic features (principal); F43.10 Post-traumatic stress disorder, unspecified; F41.9 Anxiety disorder, unspecified; F60.3 Borderline personality disorder; G47.33 Obstructive sleep apnea (adult) (pediatric)
CPT/HCPCS: H0035; H2012; 90832; 90834; 90853

== ENCOUNTER 2017-07-21 09:00 | Outpatient (RCR) | payer BC, SELFPAY ==
--- NOTE | 2017-07-21 09:54 | BH.AFTERPLAN ---
Aftercare Plan - Demographics Treatment End Date:: 07/21/17 Psychiatrist:: Tabitha Priest - outpatient is Dr. Mckee Psychiatrist Office #:: [phone] [facility] [place]/IOP Therapist:: Khadijah Arechiga - outpt: [facility] Therapist Phone #:: [phone] - Medications Home Medications: Home Medications Ethinyl Estradiol/Drospirenone [[place]va[place] 28 Tablet] 1 each PO DAILY 10/14/16 Levothyroxine [Synthroid] 137 mcg PO DAILY 10/14/16 Metformin HCl [Glucophage] 500 mg PO TID 10/14/16 Omeprazole [Prilosec] 20 mg PO BID 10/14/16 Melatonin 6 mg PO QHS 11/19/16 Topiramate [Topamax] 50 mg PO QHS 11/19/16 Trimethoprim [Trimpex] 100 mg PO MOWEFR 11/19/16 Gabapentin [Neurontin] 800 mg PO QHS 11/26/16 Prazosin HCl [Minipress] 2 mg PO QHS 11/26/16 Venlafaxine XR [Effexor Xr] 75 mg PO DAILY 12/17/16 [place] Carbonate [[place] Carbonate ER] 300 mg PO QHS 06/17/17 - Plan Details Progress/Aftercare Plan Details:: Nuvia remember to pay attention to the small steps that you are taking! Since beginning the program you have been able to show progress in implementing a regular routine and challenging yourself to take steps to begin reincorporating the healthy skills you know best support your mental health. I know that at times it feels as if you are stuck in the same place, but don't forget where you've already come from. You are showing improvements in your ability to better understand the things that contribute to your anxiety and depression as well as what warning signs let you know that things are starting to get worse. Keep paying attention to these signs and remember that you have the skills to prevent the symptoms from getting worse. You have shown so much progress in just your ability to ask for help this time around rather than avoiding and ultimately reaching another crisis situation. You are also showing improvements in that you are starting to challenge your thoughts and remind yourself that thoughts are thoughts and not necessarilly facts. Continue to reach out to Sandip and your mom and really give couple's counseling another thoughts - you never know what might help. Also, remember that progress starts with you and is going to take some patience and consistent efforts - when things start to get hard breathe, take a step back, and ASK FOR HELP! Good Jeremias Pedersen! Strategies for Success:: 1. Reach out to your supports! 2. Remember to take breaks when you need to so that you don't become overwhelmed and crash later. 3. Remind yourself that YOU CAN DO THIS! Confidence goes a long way. 4. Don't sell yourself short, you ARE making progress, celebrate it. 5. Challenge the negative thoughts, remember not to feed those ANTS! - Appointments Appointments/Referrals to Other Services:: Client is recommended to continue with outpatient psychiatry and individual therapy services for ongoing medication management and maintaining progress. She is scheduled for psychiatry with Dr. Mckee on 07/25 at 3pm and individual couseling on 07/27 with Susi Berg at [facility] as well as [facility] on 07/26. Client encourage to attend DBSA support group at [facility] and indicates plans to begin on tuesday, 07/25.
--- NOTE | 2017-07-21 14:22 | BH.SGPN ---
Service Group Progress Note - Session Psychotherapy Session #1 Date Open:: 07/21/17 Time Started:: 09:00 Time Stopped:: 10:00 Type of Group:: Process - 5 group members Goal of Group:: The goal of today's group was to check-in with client's mood, stressors, and positives, review homework and introduce topic for the day. Client Response/Progress/Benefit:: Active participant in group discussion. Emotion for today is overwhelmed. Shared with the group that today is her last day in IOP. Reports that she has had several medical appointments in the past few days which has been stressfull. Also discussed her return to work date for next week. Pt is going to return to work on part-time restrictions. She remains anxious about returning. Group provided support and praised her for her efforts while in the program. Tearful at times as she beleives that she will miss the support and feeling as if I'm not alone that the program gave her. Group members strongly encouraged her to attend local [facility] programs and offered other suggestions regarding support. Eye Contact:: Good Motor Activity:: Appropriate Speech:: Appropriate Mood:: Anxious Affect:: Full Thoughts:: Linear, Logical, No evidence of hallucinations/delusions noted Staff Interventions:: Therapist used open-ended questions to elicit information about client's current stressors and mood state. Therapist was supportive by using active listening and reflection.
--- NOTE | 2017-07-21 16:11 | BH.SGPN ---
Service Group Progress Note - Session Psychotherapy Session #2 Date Open:: 07/21/17 Time Started:: 10:10 Time Stopped:: 11:08 Targeted Problem #:: 1 Type of Group:: Illness Management - 4 participants Goal of Group:: The goal of group was to increase understanding of the benefits social support provides in mental health wellness. Another goal was to increase self-awareness of what qualities the individual group members look for in a person. Client Response/Progress/Benefit:: Client attentive an responded well to session. She provided input throughout and was able to assist fellow participants in completing the team activity requiring them to rely on one another in order to effectively complete the task at hand. CLient showed progress in her ability to ask the group for help when given the restriction of being blindfolded during activity. CLient additionally displayed increased levels of insight as she connected the group not idenifying all resources available to behaviors she may use in her own life. Client continues to struggle to apply effective communication strategies or ask for help outside of the therapeutic environment. Client encouraged to continue to work on effective communication with supports following discharge on this date. Eye Contact:: Good Motor Activity:: Appropriate Appearance:: Casual Speech:: Appropriate Mood:: Euthymic, Anxious Affect:: Congruent Thoughts:: Linear, Logical, No evidence of hallucinations/delusions noted Staff Interventions:: Therapist led a group discussion about importance of social supports. Therapist facilitated an activity that required the group members to utilize support from each other. Therapist utilized the activity as a tool to connect the importance of accepting social support. Therapist provided support through reflective listening and giving feedback. Psychotherapy Session #3 Date Open:: 07/21/17 Time Started:: 11:15 Time Stopped:: 12:17 Targeted Problem #:: 1 Type of Group:: Functional Skills Development - 5 participants Goal of Group:: The goal of group was to increase understanding of the different types of social support. Another goal was to identify one type of support the clients desire and establish one small step towards achieving that support. Client Response/Progress/Benefit:: Client again did well to remain active participant throughout session and provided input during discussion portion reviewing potential reasons why individuals do not utilize supports as well as benefits of various kinds of support. Client identified wanting to increase 3 areas of her supports including community supports, personal supports, and spiritual supports. She displayed progress in her ability to identify effective ways for improving the supports including attending the [facility] support group held at [facility] following discharge from this program, encouraging her nicky? to attend couples counseling, and re-engaging in a regular yoga practice. Client continues to do well with verbalizing potential ways to improve symptoms of depression and anxiety however struggles with follow-through and consistent utilization of these identified skills. It is recommended that she continue to work on these areas with outpatient providers. Eye Contact:: Good Motor Activity:: Appropriate Appearance:: Casual Speech:: Appropriate Mood:: Euthymic, Anxious Affect:: Congruent Thoughts:: Linear, Logical, No evidence of hallucinations/delusions noted Staff Interventions:: Therapist facilitated group discussion on the different types of social support and importance of each type of support. A worksheet titled Plan for Seeking Support, was utilized to give clients direction in identifying which type of support they desired and identifying the first small step towards the desired support. Therapist provided homework for each group member to try and accomplish the one small step each group member identified on the worksheet.
--- NOTE | 2017-07-21 19:58 | BH.DS ---
Discharge Summary - Demographics Date of Admission:: 05/27/17 Discharge Date: 07/21/17 Presenting Problems at Admission:: Client is a 32-year-old female who is self-referred to IOP program due to increased symptoms of depression and anxiety and indicates I was feeling like I was starting to slip. Client previously enrolled in the IOP program . Client reports current symptoms include memory loss due to ECT treatment completed earlier this year as well as worsening symptoms of chronic depression and anxiety impacting Client ability to complete ADL's or complete duties required for employment. Client reports isolative behaviors, hopelessness and helplessness, anhedonia, low levels of motivation, regular panic attacks, fleeting suicidal ideation, shutting down and not reaching out to supports, easily overwhelmed, and crying spells. Discharge Diagnoses:: Major depressive disorder recurrent severe of 33.2. Anxiety unspecified. PTSD. Borderline traits Reason for Discharge:: Client to return to work on restirctive duty as of 07/25/2017. Given decrease in symptomology as well as increase in Client ability to utilize treatment concepts learned Client no longer meets criteria for IOP level of care and is recommended step down to outpatient services. Client agreeable with discharge and is set up to receive ongoing outpatient psychiatry and counseling services. - Treatment Progress During Treatment & Response: Client has displayed some progress towards treatment goals. She began the IOP program with reports of isolating for entire days at a time, low levels of motivation, and increased urges to engage in self-harming behaviors. Through the implementation of a daily wellness routine and increased focus on identifying behaviors impeding Client's ability to make positive gains, she has begun to display progress in decreasing depressive symptoms. Client indicates that implementing a regular morning routine has encouraged her ability to avoid isolative behaviors and allowed for more consistent attendance in IOP program. Client continues to endorse passive thoughts of , without plan or intent, though has noted a decrease in their frequency and intensity. She denies self-harming urges as of 06/23/17. Client attributes this to actively applying thought challenging strategies as well as engaging in healthy distractions such as painting or playing with her dogs. Client is able to verbalize skills that would aid in decreasing symptoms of anxiety and depression; however, struggles with consistent implementation and low levels of motivation to change making her ability to achieve treatment goals difficult. Cient indicates at times not wanting to implement changes as she is comfortable with how things are or expresses being too afraid to implement change behaviors that may support her continued proress. Client is scheduled to return to work on a restricted schedule 07/25/17. She reports ruminative anxiety and panic when thinking about her return date. Client endorses difficulties in challenging her negative thoughts related to such and struggles to identify healthy ways to manage anxiety as she indicates nothing seems to help. Client current symptoms do not appear to impede her ability to complete daily tasks. Client indicates decreased isolation and increased communication with supports. Issues Still to be Addressed:: Continued depressive symptoms (isolation, low motivation, anhedonia), maintaining healthy balance, interpersonal relationship conflicts including increasing communication with supports, low self-esteem, trauma triggers, Self-sabotaging behaviors, and ongoing struggles with functioning at baseline. Discharge Recommendations/Instructions:: Client is recommended to continue with outpatient psychiatry and individual therapy services for ongoing medication management and maintaining progress. She is scheduled for ongoing psychiatry service with Dr. Mckee and next appointment is on 07/25 at 3pm. Next individual couseling sessions scheduled on 07/27 with Susi Berg at [facility] as well as Farida Yan on 07/26. Client encouraged to attend DBSA support group at [facility] and indicates plans to begin on tuesday, 07/25. Client additionally encouraged to schedule couple's counseling with her fiance. Discharge Handout: Complete Discharge Handout with client on aftercare options and continuity of care.
--- NOTE | 2017-07-24 19:57 | BH.IGGP_ITS ---
Aftercare Plan - Demographics Treatment End Date:: 07/21/17 Psychiatrist:: Tabitha Priest - outpatient is Dr. Mckee Psychiatrist Office #:: [phone] [facility]/IOP Therapist:: Khadijah Arechiga - outpt: Susi Berg & Farida Yan Therapist Phone #:: [phone] - Medications Home Medications: Home Medications Ethinyl Estradiol/Drospirenone [Ivana 28 Tablet] 1 each PO DAILY 10/14/16 Levothyroxine [Synthroid] 137 mcg PO DAILY 10/14/16 Metformin HCl [Glucophage] 500 mg PO TID 10/14/16 Omeprazole [Prilosec] 20 mg PO BID 10/14/16 Melatonin 6 mg PO QHS 11/19/16 Topiramate [Topamax] 50 mg PO QHS 11/19/16 Trimethoprim [Trimpex] 100 mg PO MOWEFR 11/19/16 Gabapentin [Neurontin] 800 mg PO QHS 11/26/16 Prazosin HCl [Minipress] 2 mg PO QHS 11/26/16 Venlafaxine XR [Effexor Xr] 75 mg PO DAILY 12/17/16 Marrowbone Carbonate [Marrowbone Carbonate ER] 300 mg PO QHS 06/17/17 - Plan Details Progress/Aftercare Plan Details:: Nuvia remember to pay attention to the small steps that you are taking! Since beginning the program you have been able to show progress in implementing a regular routine and challenging yourself to take steps to begin reincorporating the healthy skills you know best support your mental health. I know that at times it feels as if you are stuck in the same place, but don't forget where you've already come from. You are showing improvements in your ability to better understand the things that contribute to your anxiety and depression as well as what warning signs let you know that things are starting to get worse. Keep paying attention to these signs and remember that you have the skills to prevent the symptoms from getting worse. You have shown so much progress in just your ability to ask for help this time around rather than avoiding and ultimately reaching another crisis situation. You are also showing improvements in that you are starting to challenge your thoughts and remind yourself that thoughts are thoughts and not necessarilly facts. Continue to reach out to Sandip and your mom and really give couple's counseling another thoughts - you never know what might help. Also, remember that progress starts with you and is going to take some patience and consistent efforts - when things start to get hard breathe, take a step back, and ASK FOR HELP! Good Jeremias Pedersen! Strategies for Success:: 1. Reach out to your supports! 2. Remember to take breaks when you need to so that you don't become overwhelmed and crash later. 3. Remind yourself that YOU CAN DO THIS! Confidence goes a long way. 4. Don't sell yourself short, you ARE making progress, celebrate it. 5. Challenge the negative thoughts, remember not to feed those ANTS! - Appointments Appointments/Referrals to Other Services:: Client is recommended to continue with outpatient psychiatry and individual therapy services for ongoing medication management and maintaining progress. She is scheduled for psychiatry with Dr. Mckee on 07/25 at 3pm and individual couseling on 07/27 with Susi Berg at [facility] as well as Farida Yan on 07/26. Client encourage to attend DBSA support group at [facility] and indicates plans to begin on tuesday, 07/25.
--- NOTE | 2017-07-26 16:23 | BH.SGPN_ITS ---
Service Group Progress Note - Session Psychotherapy Session #2 Date Open:: 07/21/17 Time Started:: 10:10 Time Stopped:: 11:08 Targeted Problem #:: 1 Type of Group:: Illness Management - 4 participants Goal of Group:: The goal of group was to increase understanding of the benefits social support provides in mental health wellness. Another goal was to increase self-awareness of what qualities the individual group members look for in a person. Client Response/Progress/Benefit:: Client attentive an responded well to session. She provided input throughout and was able to assist fellow participants in completing the team activity requiring them to rely on one another in order to effectively complete the task at hand. CLient showed progress in her ability to ask the group for help when given the restriction of being blindfolded during activity. CLient additionally displayed increased levels of insight as she connected the group not idenifying all resources available to behaviors she may use in her own life. Client continues to struggle to apply effective communication strategies or ask for help outside of the therapeutic environment. Client encouraged to continue to work on effective communication with supports following discharge on this date. Eye Contact:: Good Motor Activity:: Appropriate Appearance:: Casual Speech:: Appropriate Mood:: Euthymic, Anxious Affect:: Congruent Thoughts:: Linear, Logical, No evidence of hallucinations/delusions noted Staff Interventions:: Therapist led a group discussion about importance of social supports. Therapist facilitated an activity that required the group members to utilize support from each other. Therapist utilized the activity as a tool to connect the importance of accepting social support. Therapist provided support through reflective listening and giving feedback. Psychotherapy Session #3 Date Open:: 07/21/17 Time Started:: 11:15 Time Stopped:: 12:17 Targeted Problem #:: 1 Type of Group:: Functional Skills Development - 5 participants Goal of Group:: The goal of group was to increase understanding of the different types of social support. Another goal was to identify one type of support the client?s desire and establish one small step towards achieving that support. Client Response/Progress/Benefit:: Client again did well to remain active participant throughout session and provided input during discussion portion reviewing potential reasons why individuals do not utilize supports as well as benefits of various kinds of support. Client identified wanting to increase 3 areas of her supports including community supports, personal supports, and spiritual supports. She displayed progress in her ability to identify effective ways for improving the supports including attending the DBSA support group held at [facility] following discharge from this program, encouraging her fianc? to attend couples counseling, and re-engaging in a regular yoga practice. Client continues to do well with verbalizing potential ways to improve symptoms of depression and anxiety however struggles with follow- through and consistent utilization of these identified skills. It is recommended that she continue to work on these areas with outpatient providers. Eye Contact:: Good Motor Activity:: Appropriate Appearance:: Casual Speech:: Appropriate Mood:: Euthymic, Anxious Affect:: Congruent Thoughts:: Linear, Logical, No evidence of hallucinations/delusions noted Staff Interventions:: Therapist facilitated group discussion on the different types of social support and importance of each type of support. A worksheet titled ?Plan for Seeking Support?, was utilized to give clients direction in identifying which type of support they desired and identifying the first small step towards the desired support. Therapist provided homework for each group member to try and accomplish the one small step each group member identified on the worksheet.
== END 2017-07-21 14:00 | disposition home or self-care (01) ==
LOC: BHIOP 09:00
PROVIDERS: Family Provider Nurse Practitioner Family; PCP Nurse Practitioner Family; Visit Provider Psychiatry & Neurology Psychiatry
DX: F33.2 Major depressive disorder, recurrent severe without psychotic features (principal); F41.9 Anxiety disorder, unspecified; F43.10 Post-traumatic stress disorder, unspecified
CPT/HCPCS: H0035; 90853